=== PATIENT | female | born 1970 | race Caucasian/White ===

== ENCOUNTER 2021-03-15 10:14 | Emergency (ER) | payer OTHER ==
[~2021-03-15] VITALS: Ht 167.6 cm; Wt 68.0 kg
[2021-03-15] MEDS ORDERED: ALPRAZOLAM ER1 MG PO (10:22)
[2021-03-15] MEDS ORDERED: MIRTAZAPINE7.5 MG PO (10:23)
[2021-03-15] MEDS ORDERED: TRELEGY ELLIPT1 EACH (10:23)
[2021-03-15 12:17] VITALS: BP 113/66
[2021-03-15 14:33] LABS: URINE BILIRUBIN NEGATIVE (Negative); URINE BLOOD 1+ (Negative); URINE CLARITY CLEAR; URINE COLOR YELLOW; URINE GLUCOSE-RANDOM NEGATIVE (Negative); URINE KETONES NEGATIVE (Negative); URINE LEUKOCYTES-REFLEX 1+ (Negative); URINE NITRITE-REFLEX NEGATIVE (Negative); URINE PROTEIN NEGATIVE (Negative); URINE SPECIFIC GRAVITY 1.025 (1.005-1.030); URINE UROBILINOGEN 0.2 E.U./dl (0.2-1.0)
[2021-03-15 14:40] LABS: BACTERIA-REFLEX 1-9 Few /HPF (None Seen); CASTS None Seen /LPF (None Seen); SQUAMOUS 4-10 Moderate /LPF (0-3); URINE RBC 0-2 Rare /HPF (0-2); URINE WBC-REFLEX 0-5 Rare /HPF (0-5)
[2021-03-15 14:41] LABS: CRYSTALS None Seen /LPF (None Seen)
[2021-03-15 16:11] LABS: ABSOLUTE BASOPHILS 0.1 thou/uL (0.0-0.2); ABSOLUTE EOSINOPHILS 0.1 thou/uL (0.0-0.7); ABSOLUTE LYMPHOCYTES 1.8 thou/uL (0.8-5.3); ABSOLUTE MONOCYTES 0.2 thou/uL (0.0-1.2); ABSOLUTE NEUTROPHILS 3.2 thou/uL (1.6-8.1); EOSINOPHILS 1.2 %; HEMATOCRIT 43.5 % (37.0-47.0); HEMOGLOBIN 15.2 gm/dL (12.0-15.0); LYMPHOCYTES 33.7 %; MCH 30.1 pg (26.0-34.0); MCHC 34.9 g/dL (28.0-37.0); MCV 86.1 fL (80.0-100.0); MONOCYTES 3.3 %; MPV 7.8 fl. (7.2-11.1); NUCLEATED RBCS 0 /100WBC; PLATELET COUNT* 262 thou/uL (150-400); POLYS 60.8 %; RBC 5.05 mil/uL (4.20-5.00); WBC 5.2 thou/uL (4.0-11.0)
[2021-03-15 16:23] LABS: CREATININE 0.7 mg/dL (0.6-1.3); POTASSIUM 3.7 mmol/L (3.5-5.1)
[2021-03-15 16:26] LABS: APTT 29.1 Seconds (25.0-31.3); PROTIME 10.3 Seconds (9.20-11.50)
[2021-03-15 16:36] LABS: ALBUMIN 3.9 g/dL (3.4-5.0); CK-MB MASS 0.7 ng/mL (<0.5-3.6); MAGNESIUM 2.2 mg/dL (1.8-2.4); TOTAL BILIRUBIN 0.5 mg/dL (<0.1-1.0)
--- NOTE | 2021-03-16 09:38 | EKG ---
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[facility] [place] : 1970 Requested By: Patricia Mullins Order Number: [id number] MD: Tadeo Wesley Measurements Intervals [place] Rate: 90 P: 80 MS: 176 QRS: 82 QRSD: 94 T: 65 QT: 336 QTc: 411 Interpretive Statements Sinus rhythm Baseline wander in lead(s) I,aVR No previous ECG available for comparison Electronically Signed On 03-16-2021 9:38:19 [employer]IC[employer] by Tadeo Wesley [email or web address] <ELECTRONICALLY SIGNED> By: Tadeo Wesley MD, [facility] 03/16/2138 1013 1013 Tadeo Wesley MD, FAC /EPI
== END 2021-03-15 19:23 | disposition home or self-care (01) ==
LOC: M.ERS 10:14
PROVIDERS: Emergency Medicine; Physician Assistant
DX: R07.89 Other chest pain (principal); Z20.822 Contact with and (suspected) exposure to COVID-19; Z90.710 Acquired absence of both cervix and uterus; Z79.899 Other long term (current) drug therapy